=== PATIENT | male | born 1980 | race Two or more races ===

== ENCOUNTER 2020-12-29 08:56 | Outpatient (CLI) | payer OTHER | END 2020-12-29 08:57 | disposition home or self-care (01) | LOC: PPH VACUNA 08:56 | DX: Z23 Encounter for immunization (principal) ==

== ENCOUNTER 2021-01-19 | Outpatient (CLI) | payer OTHER | END 2021-01-19 14:07 | disposition home or self-care (01) | LOC: PPH VACUNA | DX: Z23 Encounter for immunization (principal) ==